=== PATIENT | female | born 1945 | race Caucasian/White ===

== ENCOUNTER 2016-10-28 06:10 | Emergency (ER) | payer OTHER ==
[2016-10-28 06:26] VITALS: BP 159/78; PULSE 86; TEMP 98.2; BMI 23.1
--- NOTE | 2016-10-28 06:26 | PDOC ---
History of Present Illness - History of Present Illness Initial Comments: 10/28/16 06:29 The patient is a 71 year old female, with no significant past medical history, who presents to the emergency department with right shoulder pain s/p slipping on ice outside and falling onto her shoulder while coming into work today. She states she can not abduct her right arm, however, she can flex at her elbow joint. She also reports focalized tenderness to her anterior right shoulder. The patient denies any other pain or symptoms. She denies hitting her head. She denies chest pain, shortness of breath, headache and dizziness. She denies fever, chills, nausea, vomit, diarrhea and constipation. She denies dysuria, frequency, urgency and hematuria. Allergies: NKDA <Annmarie Duckworth - Last Filed: 10/28/16 06:58> <Gabriel Treivno - Last Filed: 10/28/16 07:11> - General Chief Complaint: Injury Stated Complaint: FALL Past History <Annmarie Duckworth - Last Filed: 10/28/16 06:58> - Psycho/Social/Smoking Cessation Hx Suicidal Ideation: No Smoking History: Never smoked Have you smoked in the past 12 months: No Information on smoking cessation initiated: No Hx Alcohol Use: No Drug/Substance Use Hx: No <Gabriel Trevino - Last Filed: 10/28/16 07:11> - Past Medical History Allergies/Adverse Reactions: Allergies Allergy/AdvReac Type Severity Reaction Status Date / Time No Known Allergies Allergy Verified 10/28/16 06:24 Home Medications: Ambulatory Orders NK [No Known Home Medication] 10/28/16 Review of Systems - Review of Systems Able to Perform ROS?: Yes Comments:: 10/28/16 06:29 CONSTITUTIONAL: Absent: fever, no chills, no fatigue EYES: Absent: visual changes ENT: Absent: ear pain, no sore throat CARDIOVASCULAR: Absent: chest pain, no palpitations RESPIRATORY: Absent: cough, no SOB MUSCULOSKELETAL: (+) Right shoulder pain. Absent: back pain, no arthralgia, no myalgia, no neck pain NEURO: Absent: headache <Annmarie Duckworth - Last Filed: 10/28/16 06:58> *Physical Exam - Vital Signs Last Vital Signs Temp Pulse Resp BP Pulse Ox 98.2 F 86 20 159/78 99 10/28/16 06:24 10/28/16 06:24 10/28/16 06:24 10/28/16 06:24 10/28/16 06:24 - Physical Exam Comments: 10/28/16 06:30 GENERAL: Well-appearing, well-nourished. No apparent distress. HEENT: Normocephalic, atraumatic. PERRL, EOM intact. CARDIOVASCULAR: Normal S1, S2. Regular rate and rhythm. PULMONARY: Clear to auscultation bilaterally. ABDOMEN: Soft, non-distended, non-tender. EXTREMITIES: (+) Tenderness to palpation at the anterior left shoulder. No focal deformities. SKIN: Warm, dry. No rash NEUROLOGICAL: No focal neurological deficits. <Annmarie Ducwkorth - Last Filed: 10/28/16 06:58> - Vital Signs Last Vital Signs Temp Pulse Resp BP Pulse Ox 98.2 F 86 20 159/78 99 10/28/16 06:24 10/28/16 06:24 10/28/16 06:24 10/28/16 06:24 10/28/16 06:24 <Gabriel Trevino - Last Filed: 10/28/16 07:11> Medical Decision Making - Medical Decision Making 10/28/16 06:58 Dr. Mcnally was paged at this time requesting a callback for doctor to doctor consult. <Annmarie Duckworth - Last Filed: 10/28/16 06:58> *DC/Admit/Observation/Transfer - Attestations Scribe Attestion: 10/28/16 06:31 Documentation prepared by Annmarie Duckworth, acting as biomedical manager for Gabriel Trevino MD, MD <Annmarie Duckworth - Last Filed: 10/28/16 06:58> - Discharge Dispostion Admit: No <Gabriel Trevino - Last Filed: 10/28/16 07:11> Diagnosis at time of Disposition: Rotator cuff tear arthropathy of right shoulder - Discharge Dispostion Disposition: HOME Condition at time of disposition: Stable
[2016-10-28] MEDS ORDERED: IBUPROFEN 600 MG TABLET (FP) PO ONE (07:13)
== END 2016-10-28 07:22 | disposition home or self-care (01) ==
LOC: JER 06:10
DX: S46.011A Strain of muscle(s) and tendon(s) of the rotator cuff of right shoulder, initial encounter (principal); W00.0XXA Fall on same level due to ice and snow, initial encounter; Y93.89 Activity, other specified; Y92.238 Other place in hospital as the place of occurrence of the external cause; Y99.0 Civilian activity done for income or pay
CPT/HCPCS: 73030-TC-RT; 99282-25

== ENCOUNTER 2016-12-11 05:22 | Day surgery (SDC) | payer OTHER ==
[2016-12-09 11:26] VITALS: BMI 23.1
[2016-12-11] MEDS ORDERED: ePHEDrine SULFATE 50 MG/1 ML AMPULE ONE ×2 (07:08→09:44)
[2016-12-11] MEDS ORDERED: PROPOFOL 20 ML ONE ×8 (07:08→09:45)
[2016-12-11] MEDS ORDERED: SUCCINYLCHOLINE CHLORIDE 200 MG/10 ML VIAL ONE (07:08)
[2016-12-11] MEDS ORDERED: ROPIVACAINE HCL 0.5% 30ML VIAL ONE (07:15)
[2016-12-11] MEDS ORDERED: MIDAZOLAM HCL 2 MG/2 ML SINGLE DOSE VIAL ONE ×3 (07:17→08:12)
--- NOTE | 2016-12-11 08:13 | HP ---
Satellite [facility] - Chief Complaint Chief Complaint: right shoulder pain, decreased ROM, strength History of Present Illness: right shoulder RTC tear History Source: Patient Limitations to Obtaining History: No Limitations - Past Medical History Allergies/Adverse Reactions: Allergies Allergy/AdvReac Type Severity Reaction Status Date / Time No Known Drug Allergies Allergy Verified 12/11/16 06:38 flame retardant in OR cap AdvReac Intermediate Hives Uncoded 12/11/16 06:38 - Current Medications Current Medications: Home Medications Medication Instructions Recorded NK [No Known Home Medication] 10/28/16 Satellite Physical Exam - Physical Examination Vital Signs: Vital Signs Period Temp Pulse Resp BP Sys/Boggs Pulse Ox Last 24 Hr 97.8 F 76 18 147-151/76-93 99 General Appearance: Well Nourished ENT: Clear Lung: Clear to auscultation Heart: Regular rate & rhythm Breasts: Soft Abdomen: Soft Extremities: No edema Satellite Impression/Plan - Impression/Plan Impression: right shoulder RTC tear, impingement syndrome Operative Procedure: right shoulder arthroscopy, decompression, mini open RTC repair Date to be Performed: 12/11/16
[2016-12-11] MEDS ORDERED: ceFAZolin SODIUM 1 GM VIAL IVPB ONE (08:25)
[2016-12-11] MEDS ORDERED: ONDANSETRON 4 MG/2 ML VIAL IVPUSH PRN (09:40)
[2016-12-11] MEDS ORDERED: oxyCODONE HCL 5 MG TABLET PO PRN (09:40)
[2016-12-11] MEDS ORDERED: LACTATED RINGERS SOLUTION 1,000 ML IV SCH (09:45)
--- NOTE | 2016-12-11 10:04 | OP ---
Operative Note - Note: Operative Date: 12/11/16 Pre-Operative Diagnosis: right shoulder RTC tear, impingement syndrome Operation: right shoulder arthroscopy, subacromial decompression, extensive debridement, mini open RTC repair Implants: Arthrex Swivel Lock anchors x 2, fiber wire Surgeon: Jackson Mcnally Product Engineer: Yonny Bautista Anesthesiologist/FIBERGLASSER: Jonathan Caruso Anesthesia: General, Local Estimated Blood Loss (mls): 20 Drains, Volume Out (mls): 0 Blood Volume Replaced (mls): 0 Fluid Volume Replaced (mls): 700 Operative Report Dictated: Yes
[2016-12-11] MEDS ORDERED: oxyCODONE HCL 5 MG TABLET ONE (10:58)
[2016-12-11 13:07] VITALS: BP 117/72; PULSE 92; TEMP 97.5
--- NOTE | 2016-12-11 20:22 | OP ---
DATE OF OPERATION: 12/11/2016 PREOPERATIVE DIAGNOSIS: Right shoulder subacromial impingement and rotator cuff tear. POSTOPERATIVE DIAGNOSIS: Right shoulder subacromial impingement and rotator cuff tear. PROCEDURE: Right shoulder arthroscopy, subacromial decompression, extensive debridement, and mini open rotator cuff repair. SURGEON: Chica Gardner MD SPINNERET CLEANER: Yonny Bautista MD ANESTHESIA: Jonathan Caruso MD. Right interscalene block with MAC anesthesia. DRAINS: None. COMPLICATIONS: None. FLUID REPLACEMENT: 700 mL. BLOOD LOSS: Minimal. BLOOD GIVEN: None. INDICATIONS: This patient is a 71-year-old right-hand dominant female with a preoperative diagnosis of a large rotator cuff tear and subacromial impingement. After understanding the potential risks, complications, alternatives, and benefits to surgical versus nonsurgical treatment, the patient elected to undergo this procedure. DESCRIPTION: The patient was brought to the operating room, peripheral IV placed, IV sedation given. Then 1 g of IV Ancef was given. A right interscalene block was performed. Sedation was given. She was placed into the beach chair position. The right upper extremity was prepped and draped in sterile fashion. The bony landmarks were marked out with a marking pen. Posterior portal established. Diagnostic arthroscopy was performed. Immediately it was apparent the patient had a large complete rotator cuff tear, whereas the joint itself looked fine. The biceps tendon, humeral head, glenoid, all looked good. Next, our attention turned to the subacromial space. The patient had a lot of inflammatory bursitis. A lateral portal was established with a spinal needle. A number 15 scalpel blade and green cannula was introduced into the subacromial space. An extensive debridement was done with the ArthroCare wand. Soft tissue bursectomy was performed, revealing a large subacromial spur. Photographs were taken. The 5.5-mm oval bur was used to take down the subacromial spur and smooth it out in reverse. Photographs were taken after the decompression. Top surface of the rotator cuff was then directly visualized. The patient had a massive rotator cuff tear. It was roughly in a crescent shape but it was all of the supraspinatus and the top portion of the infraspinatus tendon. The Scorpion needle passer was then used to put in 5 FiberWire sutures, brought out through the lateral portal. The lateral portal was then extended to be a mini open rotator cuff repair approach. The skin was cut with a number 15 scalpel blade. Subcutaneous hemostasis was achieved with the Bovie cautery, dissection done down to the lateral fascia of the deltoid, which was opened. Gelpi retractor used. Hemostasis was achieved. Rotator cuff was visualized. An additional open bursectomy was performed and then Sariah retractor was placed in for better visualization. I was able to mobilize the rotator cuff with the Roland elevator and bring down the rotator cuff to the humeral head. The posterior flap was brought down quite well put through a Swivel-Lock anchor. Before bringing the rotator cuff down, I did roughen up the lateral edge of the humeral head and proximal cortex with a rasp. The Swivel-Lock was brought down, excess suture cut, and that was the posterior fixed tails. I then used the anterior 4 tails to put through another Swivel-Lock anchor. It was not as able to be mobilized. So therefore I brought down the Swivel-Lock slightly more medial. It did come down quite nicely. The extra FiberWire was cut. The rotator cuff moved as a unit with the humeral head and overall the repair was excellent considering it was such a massive and retracted rotator cuff tear. The area was copiously irrigated and washed out. The deltoid fascia closed with 0 Vicryl suture. A 2-0 Vicryl was used to close the deep dermal layer. Final skin reapproximation was done with a running subcuticular 3-0 Monocryl. It was then covered with Steri-Strips, Dermabond, skin glue. The posterior portal was closed with 3-0 nylon. The area was washed and dried and 6-inch and a 4-inch Aquacel dressing was applied. The shoulder immobilizer was applied. Total operative time was about 1 hour. There were no complications during the case. Blood loss was minimal. The patient tolerated the procedure quite well. She was brought to the ambulatory recovery room in stable condition. CHICA GARDNER M.D. [id number]
--- NOTE | 2016-12-12 14:47 | PATH ---
Surgical Pathology Report Patient Name: ALEX PERALTA [facility]. Rec. #: [id number] /Age/Gender: 1945 (Age: 71) / F Account: [id number] Location: [facility] SURGICAL Taken: 12/11/2016 Received: 12/11/2016 Reported: 12/12/2016 Physicians: Jackson Mcnally M.D. Specimen(s) Received SHAVINGS RIGHT SHOULDER Clinical History Right shoulder impingement syndrome with rotator cuff tear Final Diagnosis RIGHT SHOULDER, ARTHROSCOPIC SHAVING: PORTIONS OF SYNOVIUM, CARTILAGE, SKELETAL MUSCLE AND BONE CONSISTENT WITH ARTHROSCOPIC SHAVINGS. Electronically Signed Delvis Hugo M.D. Gross Description Received in formalin, labeled "right shoulder shavings," is a 3.2 x 2.5 x 0.3 cm. aggregate of singh-yellow soft tissue fragments. A printing sales representative portion is submitted in one cassette. /12/11/201612/11/2016
== END 2016-12-11 14:15 | disposition home or self-care (01) ==
LOC: JASU-SURG 05:22
PROVIDERS: ATTEND Orthopaedic Surgery
PROC: 0RBJ4ZZ Excision of Right Shoulder Joint, Percutaneous Endoscopic Approach (ICD-10-PCS; principal; 2016-12-11 08:00)
PROC: 0LQ10ZZ Repair Right Shoulder Tendon, Open Approach (ICD-10-PCS; 2016-12-11 08:00)
DX: M75.41 Impingement syndrome of right shoulder (principal); M75.101 Unspecified rotator cuff tear or rupture of right shoulder, not specified as traumatic
CPT/HCPCS: 88304-TC; 94760

== ENCOUNTER 2021-04-02 19:32 | Emergency (ER) | payer OTHER, BC ==
[2021-04-02 19:48] VITALS: BP 117/86; PULSE 86; TEMP 98.4; BMI 23.1
[2021-04-02] MEDS ORDERED: CEFAZOLIN 1 GM in DEXTROSE 5%-WATER - 50 ML IVPB ONE (21:08)
[2021-04-02] MEDS ORDERED: DIPHTH,PERTUSS(ACELL),TET 0.5 ML DISP.SYRIN IM ONE ×2 (21:10→21:23)
[2021-04-02] MEDS ORDERED: LIDOCAINE HCL 1%, 10 MG/ML (20ML VIAL) ONE (21:23)
[2021-04-02] MEDS ORDERED: CEFAZOLIN 1 GM/D5W 1 GM/50 ML BAG ONE (21:23)
[2021-04-02] MEDS ORDERED: BACITRACIN 0.9 GM PACKET ONE (21:23)
[2021-04-02] MEDS ORDERED: ACETAMINOPHEN 1000 MG/100 ML VIAL (NON FORMULARY) IVPB ONE (21:24)
[2021-04-02] MEDS ORDERED: ACETAMINOPHEN INJECTION 100 ML IVPB ONE (21:26)
[2021-04-02] MEDS ORDERED: LIDOCAINE 1%/EPI 1:100000 (20 ML MULTI DOSE VIAL) ONE (22:24)
== END 2021-04-03 01:28 | disposition home or self-care (01) ==
LOC: JER 19:32
PROC: 0HQCXZZ Repair Left Upper Arm Skin, External Approach (ICD-10-PCS; principal; 2021-04-02)
PROC: 0CQ0XZZ Repair Upper Lip, External Approach (ICD-10-PCS; 2021-04-02)
PROC: 3E0333Z Introduction of Anti-inflammatory into Peripheral Vein, Percutaneous Approach (ICD-10-PCS; 2021-04-02)
PROC: 3E03329 Introduction of Other Anti-infective into Peripheral Vein, Percutaneous Approach (ICD-10-PCS; 2021-04-02)
PROC: 3E0234Z Introduction of Serum, Toxoid and Vaccine into Muscle, Percutaneous Approach (ICD-10-PCS; 2021-04-02)
DX: S01.511A Laceration without foreign body of lip, initial encounter (principal); S51.012A Laceration without foreign body of left elbow, initial encounter
CPT/HCPCS: 12002-25; 12011-25; 73030-TC-LT-FY; 73070-TC-LT-FY; 73130-TC-LT-FY; 73130-TC-RT-FY; 90471; 90715; 96374; 96375; 99285-25; J0131